=== PATIENT | female | born 1960 | race Hispanic/Latino ===

== ENCOUNTER 2017-11-25 05:49 | Day surgery (SDC) | payer MEDICAID ==
[2017-11-21 09:42] VITALS: BP 140/73
[2017-11-21 09:52] LABS: APPEARANCE,URINE CLEAR (CLEAR); BILIRUBIN,URINE NEGATIVE (NEGATIVE); COLOR,URINE YELLOW (YELLOW); GLUCOSE, URINE (UA) NEGATIVE (NEGATIVE); KETONES,URINE NEGATIVE (NEGATIVE); LEUKOCYTE ESTERASE ,URINE TRACE (NEGATIVE); NITRATE,URINE NEGATIVE (NEGATIVE); OCCULT BLOOD,URINE TRACE-INTACT (NEGATIVE); PH,URINE 5.5 (5.0-8.0); PROTEIN,URINE NEGATIVE (NEGATIVE); UROBILINOGEN,URINE 0.2 mg/dL (0.2-1.0)
[2017-11-21 09:53] LABS: BASOPHILS % (AUTO) 2.7 % (0.0-5.0); EOSINOPHILS % (AUTO) 3.9 % (0.0-8.0); HEMATOCRIT 38.6 % (36-48); LYMPHOCYTES % (AUTO) 18.1 % (21.0-51.0); MEAN CORPUSCULAR HEMOGLOBIN 23.2 pg (27.0-33.0); MEAN CORPUSCULAR VOLUME 72.6 fL (79-99); MONOCYTES % (AUTO) 6.9 % (3.0-13.0); NEUTROPHILS % (AUTO) 68.4 % (40.0-77.0); PLATELET COUNT (AUTO) 182 K/uL (130-400); RED BLOOD CELL COUNT(AUTO) 5.32 MIL/uL (4.00-5.50); RED CELL DISTRIBUTION WIDTH 18.6 % (11.0-15.5); WHITE BLOOD COUNT (AUTO) 8.7 K/uL (4.8-10.8)
[2017-11-21 09:59] LABS: CREATININE 0.9 mg/dL (0.5-1.5); POTASSIUM 4.4 mmol/L (3.5-5.1)
[2017-11-21 10:03] LABS: INR 0.95 (0.85-1.15); PARTIAL THROMBOPLASTIN TIME 25.4 SEC (26.3-35.5)
[2017-11-21 10:03] LABS: BACTERIA,URINE Moderate /HPF (None Seen); RBC,URINE 0-1 /HPF (0-1); SQUAMOUS EPITHELIAL CELL,UR Moderate /HPF (0-2)
[2017-11-25] VITALS (11 sets, daily range): BP systolic 113–151; BP diastolic 42–70
[~2017-11-25] VITALS: Ht 154.9 cm; Wt 149.6 kg
[~2017-11-25 05:49] MED LIST: ACETAMINOPHEN 325 MG TAB PO PRN; AMLO5TAB2 PO; ASCO10007 PO; ASPI-1181 PO; ATOR40TA71 PO; CALC-1106 PO; LISI40TA4 PO; METO50TA9 PO; OMEG-148 PO; SITA1TAB6 PO; SODIUM CHLORIDE 0.9% 500ML 500 ML IV SCH
[2017-11-25] MEDS ORDERED: SODIUM CHLORIDE 0.9% 1000ML 1,000 ML IV ONE (06:21)
[2017-11-25] MEDS ORDERED: HEPARIN SODIUM 1000UNIT/ML 10ML VIAL ONE (07:12)
[2017-11-25] MEDS ORDERED: NITROGLYCERIN 5 MG/ML 10 ML VIAL IV ONE (07:12)
[2017-11-25] MEDS ORDERED: SODIUM BICARB 50MEQ 50ML VIAL ONE (07:12)
[2017-11-25] MEDS ORDERED: LIDOCAINE HCL 2% 20ML ONE (07:13)
[2017-11-25] MEDS ORDERED: ISOVUE-370 50ML VIAL IV ONE (07:13)
[2017-11-25] MEDS ORDERED: IOPAMIDOL-370 100 ML VIAL IV ONE (07:13)
[2017-11-25] MEDS ORDERED: MEPERIDINE-PF 25 MG/ML SYG ONE (07:44)
[2017-11-25] MEDS ORDERED: MIDAZOLAM HCL 1 MG/ML 2ML VIAL ONE (07:44)
[2017-11-25] MEDS ORDERED: SODIUM CHLORIDE 0.9% 1000ML 1,000 ML IV SCH (09:05)
[2017-11-25] MEDS ORDERED: ACETAMINOPHEN-CODEINE 300/30MG TAB PO PRN (09:15)
[2017-11-25] MEDS ORDERED: GLUCAGON 1MG KIT 1 MG ML IM PRN (09:15)
[2017-11-25] MEDS ORDERED: DEXTROSE 50%-WATER 50 ML DISP.SYRIN IV PRN (09:15)
[2017-11-25] MEDS ORDERED: LISI1TAB11 PO (09:40)
[2017-11-25] MEDS ORDERED: INSULIN HUMULIN R 100 UNIT/ML 3ML SQ SCH (11:30)
== END 2017-11-25 15:50 | disposition home or self-care (01) ==
LOC: DAH 05:49
PROVIDERS: ATTEND Internal Medicine Cardiovascular Disease
DX: I25.10 Atherosclerotic heart disease of native coronary artery without angina pectoris (principal); J45.909 Unspecified asthma, uncomplicated; Z68.44 Body mass index [BMI] 60.0-69.9, adult; Z79.82 Long term (current) use of aspirin; Z79.899 Other long term (current) drug therapy; E11.9 Type 2 diabetes mellitus without complications; Z79.4 Long term (current) use of insulin; I10 Essential (primary) hypertension; E78.4 Other hyperlipidemia; E66.01 Morbid (severe) obesity due to excess calories; Z79.01 Long term (current) use of anticoagulants
CPT/HCPCS: 36415; 71045; 80048; 81001; 82948 ×2; 85025; 85610; 85730; 93005 ×2; 93458; C1769; C1893; C1894; J1644; J2175; J2250; J3490 ×3; J7030; Q9967 ×2; 99152; 99153

== ENCOUNTER → 2017-12-19 | Outpatient (CLI) | payer MEDICAID ==
[~2017-12-19] MED LIST changes: -ACETAMINOPHEN 325 MG TAB PO PRN; +LISI1TAB11 PO; -LISI40TA4 PO; -SODIUM CHLORIDE 0.9% 500ML 500 ML IV SCH
== END | disposition home or self-care (01) ==
LOC: SHCH 09:36
PROVIDERS: ATTEND Internal Medicine Cardiovascular Disease
DX: I11.0 Hypertensive heart disease with heart failure (principal); I50.9 Heart failure, unspecified; I25.10 Atherosclerotic heart disease of native coronary artery without angina pectoris
CPT/HCPCS: 93306

== ENCOUNTER 2018-06-18 15:53 | Inpatient (IN) | payer MEDICAID ==
[~2018-06-18] VITALS: Ht 154.9 cm; Wt 149.6 kg
[~2018-06-18 15:53] MED LIST changes: -AMLO5TAB2 PO; +AMLO5TAB7 PO
[2018-06-18 16:40] LABS: BASOPHILS % (AUTO) 0.6 % (0.0-5.0); EOSINOPHILS % (AUTO) 3.2 % (0.0-8.0); HEMATOCRIT 34.8 % (36-48); LYMPHOCYTES % (AUTO) 27.1 % (21.0-51.0); MEAN CORPUSCULAR HEMOGLOBIN 24.7 pg (27.0-33.0); NEUTROPHILS % (AUTO) 63.1 % (40.0-77.0); PLATELET COUNT (AUTO) 168 K/uL (130-400); RED BLOOD CELL COUNT(AUTO) 4.52 MIL/uL (4.00-5.50); WHITE BLOOD COUNT (AUTO) 8.1 K/uL (4.8-10.8)
[2018-06-18 16:57] LABS: CREATININE 1.2 mg/dL (0.5-1.5); INR 1.05 (0.85-1.15); PARTIAL THROMBOPLASTIN TIME 29.5 SEC (26.3-35.5); POTASSIUM 4.7 mmol/L (3.5-5.1)
[2018-06-18 17:01] LABS: ALBUMIN 3.2 g/dL (3.5-5.0); BILIRUBIN,TOTAL 0.5 mg/dL (0.2-1.0); TOTAL PROTEIN, SERUM 7.4 g/dL (6.0-8.3)
[2018-06-18 17:19] LABS: B-TYPE NATRIURETIC PEPTIDE 235 pg/mL (0-100)
[2018-06-18] MEDS ORDERED: ACETAMINOPHEN 325 MG TAB PO PRN (21:30)
[2018-06-18] MEDS ORDERED: GLUCAGON 1MG KIT 1 MG ML IM PRN (21:30)
[2018-06-18] MEDS ORDERED: ONDANSETRON HCL 4 MG/2 ML VIAL IV PRN (21:30)
[2018-06-18] MEDS ORDERED: ATROPINE SULFATE 0.1 MG/ML 10 ML SYG IVP PRN (21:30)
[2018-06-18] MEDS ORDERED: DEXTROSE 50%-WATER 50 ML DISP.SYRIN IV PRN (21:30)
[2018-06-18 22:13] VITALS: BP 127/83
[2018-06-18 23:00] VITALS: BP 110/63
[2018-06-18] MEDS ORDERED: APIX5TAB PO (23:04)
[2018-06-18] MEDS ORDERED: METO-408 PO (23:04)
[2018-06-18] MEDS ORDERED: LUTE20CA PO (23:04)
[2018-06-18] MEDS ORDERED: INSU10VI3 SQ (23:50)
[2018-06-18] MEDS ORDERED: HUM10VIA6 SQ (23:50)
[2018-06-19 03:00] VITALS: BP 110/46
[2018-06-19] MEDS: SODIUM CHLORIDE 0.9% 1000ML 1,000 ML IV SCH ×2 (03:39→06:10)
[2018-06-19 04:46] LABS: HEMATOCRIT 32.9 % (36-48); MEAN CORPUSCULAR HEMOGLOBIN 24.7 pg (27.0-33.0); MEAN CORPUSCULAR HGB CONC 32.5 g/dL (32.0-36.0); MEAN CORPUSCULAR VOLUME 76.2 fL (79-99); NUCLEATED RED BLOOD CELLS 0.1 % (0.0-0.19); PLATELET COUNT (AUTO) 146 K/uL (130-400); RED BLOOD CELL COUNT(AUTO) 4.32 MIL/uL (4.00-5.50); RED CELL DISTRIBUTION WIDTH 16.8 % (11.0-15.5); WHITE BLOOD COUNT (AUTO) 8.8 K/uL (4.8-10.8)
[2018-06-19 04:47] LABS: HEMOGLOBIN A1C 6.9 % (4.0-6.0)
[2018-06-19 04:57] LABS: B-TYPE NATRIURETIC PEPTIDE 188 pg/mL (0-100)
[2018-06-19 05:10] LABS: ALBUMIN 2.9 g/dL (3.5-5.0); BILIRUBIN,TOTAL 0.3 mg/dL (0.2-1.0); CREATININE 1.1 mg/dL (0.5-1.5); POTASSIUM 3.8 mmol/L (3.5-5.1); THYROID STIMULATING HORMONE 4.21 uIU/mL (0.36-3.74); TOTAL PROTEIN, SERUM 6.6 g/dL (6.0-8.3)
[2018-06-19] MEDS: INSULIN HUMULIN R 100 UNIT/ML 3ML SQ SCH ×3 (06:10→16:30)
[2018-06-19 07:30] VITALS: BP 109/52
[2018-06-19] MEDS ORDERED: ENOXAPARIN SODIUM 40 MG/0.4 ML SYRINGE SQ SCH (09:00)
[2018-06-19] MEDS ORDERED: PANTOPRAZOLE SODIUM 40 MG TABLET.DR PO SCH (09:00)
[2018-06-19 11:00] VITALS: BP 133/54
[2018-06-19 16:00] VITALS: BP 114/59
[2018-06-19] MEDS ORDERED: APIXABAN 5 MG TABLET PO SCH (21:00)
[2018-06-20] MEDS ORDERED: AMLODIPINE BESYLATE 5 MG TAB PO SCH (09:00)
[2018-06-20] MEDS ORDERED: ASPIRIN 81MG TAB.CHEW PO SCH (09:00)
[2018-06-20] MEDS ORDERED: FISH OIL 1000 MG/CAP PO SCH (09:00)
[2018-06-20] MEDS ORDERED: LISINOPRIL PO SCH (09:00)
[2018-06-20] MEDS ORDERED: HCTZ PO SCH (09:00)
[2018-06-20] MEDS ORDERED: ATORVASTATIN CALCIUM 40 MG TABLET PO SCH (09:00)
== END 2018-06-19 18:32 | disposition home or self-care (01) | DRG 201 ==
LOC: EDH 15:53 → EDHIP 15:54 → 3CH 20:52
PROVIDERS: ADMIT Internal Medicine; ATTEND Internal Medicine
DX: I48.1 Persistent atrial fibrillation (principal); E66.01 Morbid (severe) obesity due to excess calories; E11.9 Type 2 diabetes mellitus without complications; E78.00 Pure hypercholesterolemia, unspecified; E78.5 Hyperlipidemia, unspecified; I10 Essential (primary) hypertension; I25.10 Atherosclerotic heart disease of native coronary artery without angina pectoris; R00.1 Bradycardia, unspecified; J45.909 Unspecified asthma, uncomplicated; I48.2 Chronic atrial fibrillation; T44.7X5A Adverse effect of beta-adrenoreceptor antagonists, initial encounter; Z79.01 Long term (current) use of anticoagulants; Z79.4 Long term (current) use of insulin; Z68.44 Body mass index [BMI] 60.0-69.9, adult; Z83.3 Family history of diabetes mellitus; Z82.3 Family history of stroke; Z82.49 Family history of ischemic heart disease and other diseases of the circulatory system; Z79.899 Other long term (current) drug therapy; Y92.89 Other specified places as the place of occurrence of the external cause
CPT/HCPCS: 36415; 71045; 80053; 80061; 82550; 82948; 83036; 83880; 84443; 84484; 85025; 85027; 85610; 85730; 93005; J1650

== ENCOUNTER 2018-09-02 16:09 | Emergency (ER) | payer MEDICAID ==
[~2018-09-02 16:09] MED LIST changes: +APIX5TAB PO; -ASCO10007 PO; +HUM10VIA6 SQ; +INSU10VI3 SQ; +LUTE20CA PO; -METO50TA9 PO
[2018-09-02 16:31] LABS: BASOPHILS % (AUTO) 0.3 % (0.0-5.0); EOSINOPHILS % (AUTO) 0.2 % (0.0-8.0); HEMATOCRIT 33.3 % (36-48); LYMPHOCYTES % (AUTO) 8.1 % (21.0-51.0); MEAN CORPUSCULAR HEMOGLOBIN 24.4 pg (27.0-33.0); MEAN CORPUSCULAR HGB CONC 32.1 g/dL (32.0-36.0); MONOCYTES % (AUTO) 4.8 % (3.0-13.0); NEUTROPHILS % (AUTO) 86.6 % (40.0-77.0); PLATELET COUNT (AUTO) 145 K/uL (130-400); RED BLOOD CELL COUNT(AUTO) 4.38 MIL/uL (4.00-5.50); RED CELL DISTRIBUTION WIDTH 17.2 % (11.0-15.5); WHITE BLOOD COUNT (AUTO) 5.5 K/uL (4.8-10.8)
[2018-09-02 16:53] LABS: CREATININE 1.1 mg/dL (0.5-1.5); POTASSIUM 3.7 mmol/L (3.5-5.1)
[2018-09-02 16:57] LABS: ALBUMIN 2.9 g/dL (3.5-5.0); BILIRUBIN,TOTAL 0.6 mg/dL (0.2-1.0); TOTAL PROTEIN, SERUM 6.7 g/dL (6.0-8.3)
[2018-09-02] MEDS ORDERED: ONDANSETRON HCL 4 MG/2 ML VIAL ONE (17:40)
[2018-09-02] MEDS ORDERED: SODIUM CHLORIDE 0.9% 1000ML 1,000 ML IV ONE (18:39)
[2018-09-02 18:55] LABS: APPEARANCE,URINE Clear (CLEAR); BILIRUBIN,URINE Negative (NEGATIVE); COLOR,URINE Yellow (YELLOW); GLUCOSE, URINE (UA) TRACE mg/dL (NEGATIVE); KETONES,URINE Negative (NEGATIVE); LEUKOCYTE ESTERASE ,URINE Small (NEGATIVE); NITRATE,URINE Negative (NEGATIVE); OCCULT BLOOD,URINE Negative (NEGATIVE); PROTEIN,URINE Negative (NEGATIVE)
[2018-09-02 19:23] LABS: RBC,URINE 0-1 /HPF (0-1)
[2018-09-02 19:24] LABS: BACTERIA,URINE Rare /HPF (None Seen); SQUAMOUS EPITHELIAL CELL,UR Rare /HPF (0-2)
== END 2018-09-02 20:38 | disposition home or self-care (01) ==
LOC: EDH 16:09
DX: T62.8X1A Toxic effect of other specified noxious substances eaten as food, accidental (unintentional), initial encounter (principal); L03.116 Cellulitis of left lower limb; E86.0 Dehydration; R19.7 Diarrhea, unspecified; R11.2 Nausea with vomiting, unspecified; E11.9 Type 2 diabetes mellitus without complications; E78.5 Hyperlipidemia, unspecified; I10 Essential (primary) hypertension; I48.91 Unspecified atrial fibrillation; Z98.890 Other specified postprocedural states; Y92.89 Other specified places as the place of occurrence of the external cause
CPT/HCPCS: 36415; 80053; 81001; 82550; 84484; 85025; 93005; 96361; 96374; 99284; J2405; J7030

== ENCOUNTER 2019-05-12 09:37 | Emergency (ER) | payer MEDICAID ==
[~2019-05-12 09:37] MED LIST changes: -AMLO5TAB7 PO; +AMLO5TAB9 PO; -LISI1TAB11 PO; +LISI1TAB28 PO
[2019-05-12] MEDS ORDERED: KETOROLAC TROMETHAMINE 60 MG/2 ML VIAL ONE (10:06)
[2019-05-12] MEDS ORDERED: HYDROCODONE/ACETAMINOPHEN 10/325 MG TAB ONE (10:06)
[2019-05-12 10:21] LABS: APPEARANCE,URINE Clear (CLEAR); BILIRUBIN,URINE Negative (NEGATIVE); COLOR,URINE Yellow (YELLOW); GLUCOSE, URINE (UA) Negative (NEGATIVE); KETONES,URINE Negative (NEGATIVE); LEUKOCYTE ESTERASE ,URINE Small (NEGATIVE); NITRATE,URINE Negative (NEGATIVE); OCCULT BLOOD,URINE Negative (NEGATIVE); PROTEIN,URINE Negative (NEGATIVE); UROBILINOGEN,URINE 0.2 mg/dL (0.2-1.0)
[2019-05-12 10:29] LABS: BASOPHILS % (AUTO) 0.6 % (0.0-5.0); EOSINOPHILS % (AUTO) 2.9 % (0.0-8.0); HEMATOCRIT 35.1 % (36-48); LYMPHOCYTES % (AUTO) 21.2 % (21.0-51.0); MEAN CORPUSCULAR HEMOGLOBIN 23.9 pg (27.0-33.0); MEAN CORPUSCULAR HGB CONC 32.3 g/dL (32.0-36.0); NEUTROPHILS % (AUTO) 68.3 % (40.0-77.0); PLATELET COUNT (AUTO) 156 K/uL (130-400); RED BLOOD CELL COUNT(AUTO) 4.74 MIL/uL (4.00-5.50); RED CELL DISTRIBUTION WIDTH 17.5 % (11.0-15.5)
[2019-05-12 10:42] LABS: CREATININE 1.2 mg/dL (0.5-1.5); POTASSIUM 4.5 mmol/L (3.5-5.1)
[2019-05-12 10:51] LABS: BACTERIA,URINE Many /HPF (None Seen); RBC,URINE 0-1 /HPF (0-1)
== END 2019-05-12 12:12 | disposition home or self-care (01) ==
LOC: EDH 09:37
DX: B02.9 Zoster without complications (principal); R10.11 Right upper quadrant pain; E78.5 Hyperlipidemia, unspecified; I10 Essential (primary) hypertension; E11.9 Type 2 diabetes mellitus without complications; I48.91 Unspecified atrial fibrillation; Z98.890 Other specified postprocedural states
CPT/HCPCS: 36415; 80048; 81001; 85025; 96372; 99284; J1885

== ENCOUNTER → 2022-10-03 | Outpatient (CLI) | payer MEDICAID ==
[~2022-10-03] MED LIST changes: +AMLO-257 PO; -AMLO5TAB9 PO; -ASPI-1181 PO; +ASPI-1443 PO; -LISI1TAB28 PO; +LISI1TAB51 PO; +MECL-160 PO
[2022-10-03 16:51] LABS: CREATININE 1.1 mg/dL (0.5-1.5); MAGNESIUM 1.7 mg/dL (1.80-2.40)
== END | disposition home or self-care (01) ==
LOC: LAB 15:08
PROVIDERS: ATTEND Physician Assistant
DX: I48.20 Chronic atrial fibrillation, unspecified (principal); E78.5 Hyperlipidemia, unspecified
CPT/HCPCS: 36415; 80048; 83735; 83880

== ENCOUNTER → 2022-10-28 | Outpatient (CLI) | payer MEDICAID | END | disposition home or self-care (01) | LOC: SHCH 13:57 | PROVIDERS: ATTEND Internal Medicine Cardiovascular Disease | DX: I08.0 Rheumatic disorders of both mitral and aortic valves (principal); I11.9 Hypertensive heart disease without heart failure; I48.0 Paroxysmal atrial fibrillation; E11.9 Type 2 diabetes mellitus without complications; E78.5 Hyperlipidemia, unspecified; E66.9 Obesity, unspecified | CPT/HCPCS: 93306 ==

== ENCOUNTER 2022-12-25 07:22 | Day surgery (SDC) | payer MEDICAID ==
[2022-12-23 15:19] VITALS: BP 150/55
[2022-12-23 15:34] LABS: BASOPHILS % (AUTO) 0.4 % (0.0-5.0); EOSINOPHILS % (AUTO) 3.4 % (0.0-8.0); HEMATOCRIT 32.5 % (36-48); LYMPHOCYTES % (AUTO) 23.2 % (21.0-51.0); MEAN CORPUSCULAR HEMOGLOBIN 19.9 pg (27.0-33.0); MEAN CORPUSCULAR HGB CONC 27.7 g/dL (32.0-36.0); MEAN CORPUSCULAR VOLUME 71.9 fL (79-99); MONOCYTES % (AUTO) 7.5 % (3.0-13.0); PLATELET COUNT (AUTO) 206 K/uL (130-400); RED BLOOD CELL COUNT(AUTO) 4.52 MIL/uL (4.00-5.50); RED CELL DISTRIBUTION WIDTH 19.7 % (11.0-15.5); WHITE BLOOD COUNT (AUTO) 8.5 K/uL (4.8-10.8)
[2022-12-23 15:42] LABS: CREATININE 1.1 mg/dL (0.5-1.5); INR 1.02 (0.85-1.15); POTASSIUM 4.3 mmol/L (3.5-5.1); PROTHROMBIN TIME 11.1 SEC (9.6-11.6)
[2022-12-23 15:44] LABS: PARTIAL THROMBOPLASTIN TIME 28.4 SEC (26.3-35.5)
[~2022-12-25] VITALS: Ht 157.5 cm; Wt 172.3 kg
[2022-12-25] VITALS (13 sets, daily range): BP systolic 129–156; BP diastolic 54–80
[~2022-12-25 07:22] MED LIST changes: +0.9%NACL 1000ML 1,000 ML IV SCH
[2022-12-25] MEDS ORDERED: 0.9%NACL 1000ML 1,000 ML IV ONE (08:41)
[2022-12-25] MEDS ORDERED: BUPIVACAINE/PF 0.25% 10ML VIAL IJ ONE (09:24)
[2022-12-25] MEDS ORDERED: MIDAZOLAM HCL 1 MG/ML 2ML VIAL ONE ×3 (09:24→10:15)
[2022-12-25] MEDS ORDERED: MEPERIDINE-PF 25 MG/ML SYG ONE ×3 (09:24→10:16)
[2022-12-25] MEDS ORDERED: LIDOCAINE HCL 1% MDV 50ML VIAL ONE (09:24)
[2022-12-25] MEDS ORDERED: CEFAZOLIN SODIUM 1 GM VIAL ONE ×2 (09:24→17:55)
[2022-12-25] MEDS ORDERED: IOHEXOL-350 50ML VIAL IV ONE (09:25)
[2022-12-25] MEDS ORDERED: IODIXANOL 320 MG/ML 100 ML VIAL ONE (09:49)
[2022-12-25] MEDS ORDERED: BACITRACIN 1 EACH PACKET TP ONE (11:12)
[2022-12-25] MEDS ORDERED: ACETAMINOPHEN WITH CODEINE 1 TAB TAB PO PRN ×2 (11:30)
[2022-12-25] MEDS ORDERED: ONDANSETRON 4MG INJ IV PRN (11:30)
[2022-12-25] MEDS ORDERED: CEFAZOLIN SODIUM 2 GM VIAL IVP SCH (16:00)
[2022-12-25] MEDS ORDERED: ACETAMINOPHEN WITH CODEINE 1 TAB TAB ONE (17:17)
== END 2022-12-25 18:40 | disposition home or self-care (01) ==
LOC: DAH 07:22
PROVIDERS: ATTEND Internal Medicine Cardiovascular Disease
DX: I49.5 Sick sinus syndrome (principal); I45.2 Bifascicular block; I48.19 Other persistent atrial fibrillation; I10 Essential (primary) hypertension; E11.9 Type 2 diabetes mellitus without complications; E66.9 Obesity, unspecified; J45.909 Unspecified asthma, uncomplicated; I25.10 Atherosclerotic heart disease of native coronary artery without angina pectoris; E78.5 Hyperlipidemia, unspecified; Z82.49 Family history of ischemic heart disease and other diseases of the circulatory system; Z68.44 Body mass index [BMI] 60.0-69.9, adult; Z79.01 Long term (current) use of anticoagulants; Z79.899 Other long term (current) drug therapy
CPT/HCPCS: 80048; 85025; 85610; 85730; 36415; 93005 ×2; 33207; 82948 ×2; 71045; C1769 ×2; C1786; C1898; C1894; J0690 ×2; J7030; J2250 ×2; J2175 ×2; J3490 ×2; A4215; A4335; A4222; A4221; A4663; A4216; A4606; A4223 ×3; S0020; A4554; 99156; 99157; Q9967

== ENCOUNTER 2023-11-25 15:18 | Observation (INO) | payer MEDICARE ==
[~2023-11-25] VITALS: Ht 157.5 cm; Wt 151.5 kg
[~2023-11-25 15:18] MED LIST changes: -0.9%NACL 1000ML 1,000 ML IV SCH; -AMLO-257 PO
[2023-11-25 16:59] LABS: BASOPHILS # (AUTO) 0.04 K/uL (0.00-0.20); BASOPHILS % (AUTO) 0.5 % (0.0-5.0); EOSINOPHILS # (AUTO) 0.17 K/uL (0.00-0.70); EOSINOPHILS % (AUTO) 2.2 % (0.0-8.0); HEMATOCRIT 34.5 % (36-48); IMMATURE GRANULOCYTE ABSOLUTE 0.03 K/uL (0-1); LYMPHOCYTES # (AUTO) 1.7 K/uL (1.0-4.8); LYMPHOCYTES % (AUTO) 22.8 % (21.0-51.0); MEAN CORPUSCULAR HEMOGLOBIN 20.3 pg (27.0-33.0); MEAN CORPUSCULAR HGB CONC 28.7 g/dL (32.0-36.0); MEAN CORPUSCULAR VOLUME 70.7 fL (79-99); MONOCYTES # (AUTO) 0.6 K/uL (0.1-1.0); MONOCYTES % (AUTO) 7.6 % (3.0-13.0); NEUTROPHILS % (AUTO) 66.5 % (40.0-77.0); PLATELET COUNT (AUTO) 212 K/uL (130-400); RED BLOOD CELL COUNT(AUTO) 4.88 MIL/uL (4.00-5.50); RED CELL DISTRIBUTION WIDTH 20.5 % (11.0-15.5); WHITE BLOOD COUNT (AUTO) 7.6 K/uL (4.8-10.8)
[2023-11-25 17:07] LABS: POTASSIUM 3.9 mmol/L (3.5-5.1)
[2023-11-25 17:11] LABS: ALBUMIN 2.9 g/dL (3.5-5.0); BILIRUBIN,TOTAL 0.4 mg/dL (0.2-1.0); MAGNESIUM 1.6 mg/dL (1.80-2.40); TOTAL PROTEIN, SERUM 6.7 g/dL (6.0-8.3)
[2023-11-25 18:05] VITALS: BP 151/76; PULSE 71; RESP 20
[2023-11-25 18:10] VITALS: O2SAT 100
[2023-11-25] MEDS ORDERED: CALC-1009 PO (18:28)
[2023-11-25] MEDS ORDERED: LUTE1CAP6 PO (18:28)
[2023-11-25] MEDS ORDERED: FISH1CAP20 PO (18:28)
[2023-11-25] MEDS ORDERED: METO-408 PO (18:28)
[2023-11-25] MEDS ORDERED: ATOR40TA69 PO (18:28)
[2023-11-25] MEDS ORDERED: AEC81 PO (18:28)
[2023-11-25] MEDS ORDERED: SITA1TAB6 PO (18:28)
[2023-11-25] MEDS ORDERED: APIX5TAB PO (18:28)
[2023-11-25] MEDS ORDERED: LISI40TA9 PO (18:28)
[2023-11-25 19:52] VITALS: BP 117/58; PULSE 70; RESP 18
[2023-11-25 20:00] VITALS: O2SAT 100
[2023-11-25 23:11] VITALS: BP 121/67; PULSE 70; RESP 20
[2023-11-26 04:32] VITALS: BP 105/54; PULSE 70; RESP 18
[2023-11-26 08:00] VITALS: BP 126/73; PULSE 70; RESP 17; O2SAT 96
[2023-11-26] MEDS: SOLU-MEDROL 125MG VIAL IVP ONE (08:58)
[2023-11-26 09:23] LABS: MAGNESIUM 1.8 mg/dL (1.80-2.40)
[2023-11-26 09:43] LABS: % IRON SATURATION 9.9 % (22-44)
[2023-11-26 12:00] VITALS: BP 126/73; PULSE 70; RESP 17
== END 2023-11-26 14:20 | disposition home or self-care (01) ==
LOC: EDH 15:18 → EDHIP 16:28 → INTOOBSV 16:28 → 2AH 17:39
PROVIDERS: ADMIT Internal Medicine Cardiovascular Disease; ATTEND Internal Medicine Cardiovascular Disease
DX: H54.62 Unqualified visual loss, left eye, normal vision right eye (principal); I10 Essential (primary) hypertension; E66.01 Morbid (severe) obesity due to excess calories; E78.5 Hyperlipidemia, unspecified; E11.9 Type 2 diabetes mellitus without complications; I48.20 Chronic atrial fibrillation, unspecified; I25.10 Atherosclerotic heart disease of native coronary artery without angina pectoris; R00.1 Bradycardia, unspecified; G25.81 Restless legs syndrome; I35.0 Nonrheumatic aortic (valve) stenosis; D50.9 Iron deficiency anemia, unspecified; J45.909 Unspecified asthma, uncomplicated; Z79.01 Long term (current) use of anticoagulants; Z79.4 Long term (current) use of insulin; Z68.44 Body mass index [BMI] 60.0-69.9, adult; Z86.2 Personal history of diseases of the blood and blood-forming organs and certain disorders involving the immune mechanism
CPT/HCPCS: 83735 ×2; 80061; 80053; 85025; 85651; 82948 ×3; 36415 ×2; 70450; 93880; 96374; 83540; 83550; 82728; 86803; 86160; 86038; 82270; 93306; 93356; G0378 ×3; J2930

== ENCOUNTER → 2024-01-13 | Outpatient (CLI) | payer MEDICARE ==
[~2024-01-13] MED LIST changes: +AEC81 PO; -ASPI-1443 PO; +ATOR40TA69 PO; -ATOR40TA71 PO; +CALC-1009 PO; -CALC-1106 PO; +FISH1CAP20 PO; -HUM10VIA6 SQ; -INSU10VI3 SQ; -LISI1TAB51 PO; +LISI40TA9 PO; +LUTE1CAP6 PO; -LUTE20CA PO; -MECL-160 PO; +METO-408 PO; -OMEG-148 PO
[2024-01-13 12:32] LABS: POTASSIUM 4.6 mmol/L (3.5-5.1)
== END | disposition home or self-care (01) ==
LOC: LAB 08:23
PROVIDERS: ATTEND Physician Assistant
DX: I25.10 Atherosclerotic heart disease of native coronary artery without angina pectoris (principal)
CPT/HCPCS: 36415; 80048

== ENCOUNTER 2024-02-23 20:37 | Emergency (ER) | payer MEDICARE ==
[~2024-02-23] VITALS: Ht 157.5 cm; Wt 150.1 kg
[2024-02-23] MEDS: METHOCARBAMOL 500 MG TABLET PO STA (21:16)
[2024-02-23] MEDS: KETOROLAC 15MG/ML VIAL (15MG/ML) IM STA (21:17)
[2024-02-23 21:20] VITALS: BP 152/68; PULSE 79; RESP 18; O2SAT 98
[2024-02-23] MEDS ORDERED: ACET-66 PO (21:33)
== END 2024-02-23 21:48 | disposition home or self-care (01) ==
LOC: EDH 20:37
DX: M25.512 Pain in left shoulder (principal); M54.89 Other dorsalgia; I10 Essential (primary) hypertension; E11.9 Type 2 diabetes mellitus without complications; E78.00 Pure hypercholesterolemia, unspecified; J45.909 Unspecified asthma, uncomplicated; Z79.82 Long term (current) use of aspirin; Z79.899 Other long term (current) drug therapy; Z98.890 Other specified postprocedural states
CPT/HCPCS: 99283; 96372; J1885

== ENCOUNTER → 2024-06-25 | Outpatient (CLI) | payer MEDICARE ==
[~2024-06-25] MED LIST changes: +ACET-66 PO
[2024-06-25 15:30] LABS: CREATININE 0.9 mg/dL (0.5-1.0); POTASSIUM 4.4 mmol/L (3.5-5.1)
== END | disposition home or self-care (01) ==
LOC: LAB 13:29
PROVIDERS: ATTEND Internal Medicine Cardiovascular Disease
DX: I10 Essential (primary) hypertension (principal)
CPT/HCPCS: 36415; 80048

== ENCOUNTER 2024-09-21 11:08 | Emergency (ER) | payer MEDICARE ==
[~2024-09-21] VITALS: Ht 157.5 cm; Wt 139.7 kg
--- NOTE | 2024-09-21 11:38 | NUR ---
PT JUST NOW PLACED IN HALLWAY BED C FROM EMS HOLDING
--- NOTE | 2024-09-21 11:42 | ERN ---
ED Note History of Present Illness Stated Complaint: WEAKNESS, COUGH, VOMITING Chief Complaint: Weakness Time Seen by MD: 11:12 Dictation: 63-year-old female she comes in for cough congestion runny nose. Vomiting and abdominal pain Allergies: Coded Allergies: No Known Drug Allergies (Unverified Allergy, Unknown, 11/21/17) Home Meds Active Scripts Cephalexin (Cephalexin) 500 Mg Tablet, 1 TAB PO BID for 3 Days, #30 TAB 0 Refills Prov:BIPIN CHI MD 09/21/24 Oseltamivir Phosphate (Tamiflu) 75 Mg Cap, 75 MG PO DAILY for 5 Days, #10 CAP Prov:BIPIN CHI MD 09/21/24 Acetaminophen (Acetaminophen) 500 Mg Tablet, 500 MG PO Q6HPRN PRN for PAIN, #30 TAB Prov:ROMERO STEWART 02/23/24 Reported Medications Sitagliptin Phos/Metformin HCl (Janumet 50-1,000 mg Tablet) 50 Mg-1,000 Mg Tablet, 1 EACH PO BID, TAB 11/25/23 Atorvastatin Calcium (LIPITOR) 40 Mg Tablet, 40 MG PO DAILY, TAB 11/25/23 Metoprolol Succinate (Metoprolol Succinate) 25 Mg Tab.er.24h, 25 MG PO AM, TAB 11/25/23 Lisinopril (Lisinopril) 40 Mg Tablet, 40 MG PO DAILY, TAB 11/25/23 Aspirin (ASPIRIN 81 MG ECTAB) 81 Mg Ectab, 81 MG PO DAILY, TAB.EC 11/25/23 Calcium Carb & Cit/Vitamin D3 (Calcium + D3 ER Tablet) 600MG-12.5 Tablet.er, 1 EACH PO DAILY, TAB 11/25/23 Apixaban (Eliquis) 5 Mg Tablet, 5 MG PO BID, TAB 11/25/23 Lutein/Zeaxanthin (Lutein-Zeaxanthin 20-1 mg Sfgl) 20 Mg-1,000 Mcg Capsule, 1 EACH PO DAILY, CAP 11/25/23 R[place]on-3 Fatty Acids/Fish Oil (Fish Oil 1000 mg/Cap) 300 Mg-1,000 Mg Capsule, 1000 MG PO DAILY, CAP 11/25/23 Past Medical History Past Medical History: CAD, Diabetes-Type II, High Cholesterol, Heart Disease, Hypertension Additional Past Medical Hx: MORBIDLY OBESE Surgical History: Pacer/AICD Social History: Negative Review of System Dictation Constitutional: Negative for fever,chills, and weight loss Eyes: Negative for injury, pain,redness, and discharge ENT: Negative for injury,pain or swelling Cardiovascular: Negative for chest pain, palpitations, and edema Respiratory: Cough congestion runny nose Abdomen/GI: Abdominal pain vomiting Back: Negative for injury and pain : Negative for injury, bleeding and discharge MS/Extremity: Negative for injury and deformity Skin: Negative for rash, and discoloration Neuro: Negative for headache, weakness, numbness, tingling, and seizure Psych: Negative for suicide ideation, homicidal ideation, and hallucinations Initial Vital Sign VS Vital Signs Date Time Temp Pulse Resp B/P (MAP) Pulse Ox O2 Delivery O2 Flow Rate FiO2 09/21/24 11:10 99.0 110 16 147/82 97 0 Physical Exam Dictation General: awake, alert, NAD Head/Face: Normocephalic, atraumatic Eyes: PERRL, EOMI, vision at baseline ENT: oral cavity clear, TMs clear, no signs of infection Neck: Trachea midline, supple, no nuchal rigidity Cardiovascular: RRR, normal S1/S2, No MRGs, no JVD Respiratory: CTAB, no respiratory distress, No rales or wheezes Abdomen: Soft, non-tender, non-distended, normal bowel sounds, no guarding or rebound. Skin: Warm, dry, normal turgor, no rash MS/Extremity: Pulses equal, no cyanosis, neurovascular intact, FROM Neuro: COAx4, GCS 15, strength 5/5, CN 2-12 intact, normal cerebellar exam, normal gait, Psych: Normal behavior, mood, and affect normal Results (Laboratory/Radiology) Laboratory/Radiology Laboratory Tests Test 09/21/24 11:46 09/21/24 11:58 09/21/24 12:26 Urine Color LIGHT-YELLOW (YELLOW) Urine Appearance CLOUDY (CLEAR) H Urine pH 5.5 (5.0-8.0) Urine Specific [place] 1.018 (1.001-1.031) Urine Protein 10 mg/dL (NEGATIVE) H Urine Glucose (UA) 30 mg/dL (NEGATIVE) H Urine Ketones NEGATIVE mg/dL (NEGATIVE) Urine Occult Blood NEGATIVE (NEGATIVE) Urine Nitrate 1+ (NEGATIVE) H Urine Bilirubin NEGATIVE mg/dL (NEGATIVE) Urine Urobilinogen 0.2 mg/dL (0.2-1.0) Urine Leukocyte Esterase 250 [place]/uL (NEGATIVE) H Urine RBC 2-5 /HPF (0-1) H Urine WBC 11-25 /HPF (0-1) H Urine Squamous Epithelial Cells FEW /HPF (0-2) Urine Bacteria MOD /HPF (None Seen) White Blood Count 5.6 K/uL (4.8-10.8) Red Blood Count 4.45 MIL/uL (4.00-5.50) Hemoglobin 9.9 g/dL (12.0-16.0) L Hematocrit 33.3 % (36-48) L Mean Corpuscular Volume 74.8 fL (79-99) L Mean Corpuscular Hemoglobin 22.2 pg (27.0-33.0) L Mean Corpuscular Hemoglobin Concent 29.7 g/dL (32.0-36.0) L Red Cell Distribution Width 20.0 % (11.0-15.5) H Platelet Count 199 K/uL (130-400) Mean Platelet Volume 11.8 fL (7.5-10.5) H Immature Granulocyte % (Auto) 0.4 % (0-1) Neutrophils (%) (Auto) 77.5 % (40.0-77.0) H Lymphocytes (%) (Auto) 9.8 % (21.0-51.0) L Monocytes (%) (Auto) 8.7 % (3.0-13.0) Eosinophils (%) (Auto) 3.4 % (0.0-8.0) Basophils (%) (Auto) 0.2 % (0.0-5.0) Neutrophils # (Auto) 4.4 K/uL (1.8-7.7) Lymphocytes # (Auto) 0.6 K/uL (1.0-4.8) L Monocytes # (Auto) 0.5 K/uL (0.1-1.0) Eosinophils # (Auto) 0.19 K/uL (0.00-0.70) Basophils # (Auto) 0.01 K/uL (0.00-0.20) Absolute Immature Granulocyte (auto 0.02 K/uL (0-1) Nucleated Red Blood Cells 0.0 % (0.0-0.19) White Cell Morphology Comment See comments Red Blood Cell Morphology See comments Sodium Level 139 mmol/L (136-145) Potassium Level 3.7 mmol/L (3.5-5.1) Chloride Level 105 mmol/L (101-111) Carbon Dioxide Level 28 mmol/L (21-32) Blood Urea Nitrogen 8 mg/dL (7-18) Creatinine 0.8 mg/dL (0.5-1.0) Glomerular Filtration Rate Calc 82 mL/min (>90) Random Glucose 145 mg/dL (70-105) H Total Calcium 8.6 mg/dL (8.5-10.1) Total Bilirubin 0.6 mg/dL (0.2-1.0) Aspartate Amino Transf (AST/SGOT) 21 U/L (10-37) Alanine Aminotransferase (ALT/SGPT) 14 U/L (12-78) Alkaline Phosphatase 81 U/L (50-136) Troponin I High Sensitivity 16 ng/L (4-50) Total Protein 6.9 g/dL (6.0-8.3) Albumin 2.9 g/dL (3.5-5.0) L Lipase 15 U/L (16-77) L Influenza Type A Antigen Positive For Type A Influenza Type B Antigen Negative For Type B SARS-CoV-2 Antigen (Rapid) PRESUMPTIVE NEGATIVE Group A Streptococcus Rapid negative (NEGATIVE) ED Course ED Course Orders Procedure Category Date Status Time Cbc With Differential LAB 09/21/24 Complete 11:18 Comprehensive LAB 09/21/24 Complete Metabolic Panel 11:18 Urinalysis Profile LAB 09/21/24 Complete 11:18 Lipase LAB 09/21/24 Complete 11:18 Ct Abdomen/Pelvis W/O CT 09/21/24 Resulted Contrast 11:18 Chest 1vw RAD 09/21/24 Resulted 11:18 12 Lead Ekg Tracing- EKG 09/21/24 Complete Technical 11:18 Troponin I High LAB 09/21/24 Complete Sensitivity 11:18 Covid19 (Sars Antigen LAB 09/21/24 Complete Rapid) 11:18 Influenza Type A & B, LAB 09/21/24 Complete Rapid 11:18 Rapid (Group A Strep) LAB 09/21/24 Complete 11:18 Culture Urine BONNIE 09/21/24 In Process 12:05 Vital Signs Date Time Temp Pulse Resp B/P (MAP) Pulse Ox O2 Delivery O2 Flow Rate FiO2 09/21/24 11:10 99.0 110 16 147/82 97 0 Medical Decision Making MDM MDM: Differential diagnosis: Do not have any signs of intra-abdominal pathology or pneumonia. I did give her antibiotics for UTI. And influenza. I told to return to the ED if she is not improve in next couple of days. Develops any chest pain shortness of breath etc.. Rationale: Tests considered and ordered secondary to shared decision making include: Previous outside records reviewed: Old ER visits. Risk of complication and/or morbidity or mortality of patient management: None Medications-Per medication reconciliation Need for hospitalization: Patient does not meet criteria for hospitalization. Need for emergency major/minor surgery: No There are no social concerns with this patient. Prescription drug management Prescriptions will include symptomatic care Patient's prior external medical records from other ER visits were reviewed by me as indicated. Prior testing and results from previous visits were reviewed. Prior tests were taken into account with medical decision making and resource utilization, independent historian/historians were used to obtain complete medical history. I independently interpreted the test that were performed, results were reviewed by me and considered findings on radiology if ordered. Medical management and examination interpretation discussions were had by me with other qualified healthcare professionals as indicated for the patient's care. DX & DISP Disposition: Discharge Departure Impression: Primary Impression: Influenza A Additional Impression: UTI (urinary tract infection) Condition: Stable Scripts Cephalexin (Cephalexin) 500 Mg Tablet 1 TAB PO BID for 3 Days, #30 TAB 0 Refills Prov: BIPIN CHI MD 09/21/24 Oseltamivir Phosphate (Tamiflu) 75 Mg Cap 75 MG PO DAILY for 5 Days, #10 CAP Prov: BIPIN CHI MD 09/21/24 Referrals: MARLA LUGO MD (PCP) BIPIN CHI MD Sep 21, 2024 11:41
[2024-09-21 12:02] LABS: APPEARANCE,URINE CLOUDY (CLEAR); BILIRUBIN,URINE NEGATIVE (NEGATIVE); COLOR,URINE LIGHT-YELLOW (YELLOW); GLUCOSE, URINE (UA) 30 mg/dL (NEGATIVE); KETONES,URINE NEGATIVE (NEGATIVE); LEUKOCYTE ESTERASE ,URINE 250 Leu/uL (NEGATIVE); NITRATE,URINE 1+ (NEGATIVE); OCCULT BLOOD,URINE NEGATIVE (NEGATIVE); PH,URINE 5.5 (5.0-8.0); PROTEIN,URINE 10 mg/dL (NEGATIVE); UROBILINOGEN,URINE 0.2 mg/dL (0.2-1.0)
[2024-09-21 12:05] LABS: ADD UA MICROSCOPIC YES
[2024-09-21 12:09] LABS: BACTERIA,URINE MOD /HPF (None Seen); MUCUS,URINE RARE LPF (None Seen); SQUAMOUS EPITHELIAL CELL,UR FEW /HPF (0-2)
[2024-09-21 12:13] LABS: BASOPHILS # (AUTO) 0.01 K/uL (0.00-0.20); BASOPHILS % (AUTO) 0.2 % (0.0-5.0); EOSINOPHILS # (AUTO) 0.19 K/uL (0.00-0.70); EOSINOPHILS % (AUTO) 3.4 % (0.0-8.0); HEMATOCRIT 33.3 % (36-48); IMMATURE GRANULOCYTE ABSOLUTE 0.02 K/uL (0-1); LYMPHOCYTES # (AUTO) 0.6 K/uL (1.0-4.8); LYMPHOCYTES % (AUTO) 9.8 % (21.0-51.0); MEAN CORPUSCULAR HEMOGLOBIN 22.2 pg (27.0-33.0); MEAN CORPUSCULAR HGB CONC 29.7 g/dL (32.0-36.0); MEAN CORPUSCULAR VOLUME 74.8 fL (79-99); MONOCYTES # (AUTO) 0.5 K/uL (0.1-1.0); MONOCYTES % (AUTO) 8.7 % (3.0-13.0); NEUTROPHILS # (AUTO) 4.4 K/uL (1.8-7.7); NEUTROPHILS % (AUTO) 77.5 % (40.0-77.0); PLATELET COUNT (AUTO) 199 K/uL (130-400); RED BLOOD CELL COUNT(AUTO) 4.45 MIL/uL (4.00-5.50); WHITE BLOOD COUNT (AUTO) 5.6 K/uL (4.8-10.8)
[2024-09-21 12:21] LABS: CREATININE 0.8 mg/dL (0.5-1.0); POTASSIUM 3.7 mmol/L (3.5-5.1)
--- NOTE | 2024-09-21 12:24 | HMCIMG ---
CHEST 1VW REASON: cough COMPARISON: 12/25/2022 FINDINGS: Single view of the chest was obtained. Lungs are clear. Heart size is normal. There is no pulmonary vascular congestion. Mediastinum and bony thorax appear unremarkable. There is a pacemaker in place. IMPRESSION: 1. No acute finding, no change.
[2024-09-21 12:26] LABS: ALBUMIN 2.9 g/dL (3.5-5.0); BILIRUBIN,TOTAL 0.6 mg/dL (0.2-1.0); TOTAL PROTEIN, SERUM 6.9 g/dL (6.0-8.3)
--- NOTE | 2024-09-21 12:30 | HMCIMG ---
CT ABDOMEN/PELVIS W/O CONTRAST REASON: abd pain COMPARISON: None. FINDINGS: Lung bases are clear. There are no focal liver lesions. There are normal-appearing kidneys.. Spleen and pancreas appear unremarkable. There multiple stones present in an otherwise normal-appearing gallbladder, there is no wall thickening or edema. The gallbladder is not distended. There is moderate sigmoid diverticulosis without evidence of diverticulitis. Bowel loops appear otherwise unremarkable. This includes normal appearance of the appendix There is no evidence of free fluid or intraperitoneal air. There are no focal fluid collections. Aorta and retroperitoneum appear normal as do pelvic soft tissue structures. There is a small periumbilical ventral hernia containing only mesenteric fat. Osseous structures appear unremarkable. IMPRESSION: 1. Cholelithiasis without evidence of acute cholecystitis. 2. Moderate sigmoid diverticulosis without evidence of diverticulitis. 3. Small umbilical hernia containing mesenteric fat only. CT was performed with one or more following dose reduction techniques: automated exposure control, adjustment of the mA and kv according to patient's size, or use of a iterative reconstruction technique.
[2024-09-21 13:06] LABS: RAPID GROUP A STREP negative (NEGATIVE)
--- NOTE | 2024-09-21 13:08 | EKG ---
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
[2024-09-21 13:16] LABS: COVID19 (SARS ANTIGEN RAPID) PRESUMPTIVE NEGATIVE (NEGATIVE); INFLUENZA TYPE B Negative For Type B (NEGATIVE)
[2024-09-21 13:24] LABS: INFLUENZA TYPE A Positive For Type A (NEGATIVE)
[2024-09-21] MEDS ORDERED: CEPH500T PO (13:33)
[2024-09-21] MEDS ORDERED: OSEL75 PO (13:33)
[2024-09-21 14:20] VITALS: BP 127/61; PULSE 70; RESP 16; TEMP 98.9; O2SAT 97
== END 2024-09-21 14:36 | disposition home or self-care (01) ==
LOC: EDH 11:08
DX: J10.1 Influenza due to other identified influenza virus with other respiratory manifestations (principal); N39.0 Urinary tract infection, site not specified; K57.30 Diverticulosis of large intestine without perforation or abscess without bleeding; K80.20 Calculus of gallbladder without cholecystitis without obstruction; E11.9 Type 2 diabetes mellitus without complications; E66.01 Morbid (severe) obesity due to excess calories; E78.00 Pure hypercholesterolemia, unspecified; I10 Essential (primary) hypertension; I25.10 Atherosclerotic heart disease of native coronary artery without angina pectoris; Z79.01 Long term (current) use of anticoagulants; Z79.82 Long term (current) use of aspirin; Z79.84 Long term (current) use of oral hypoglycemic drugs; Z79.899 Other long term (current) drug therapy; Z95.810 Presence of automatic (implantable) cardiac defibrillator; Z20.822 Contact with and (suspected) exposure to COVID-19
CPT/HCPCS: 36415; 71045; 74176; 80053; 81001; 83690; 84484; 85025; 87086; 87186; 87426; 87804; 87880; 93005; 99285